=== PATIENT | male | born 1965 | race Hispanic/Latino ===

== ENCOUNTER → 2021-10-24 | Outpatient (CLI) | payer BC ==
[~2021-10-24] MED LIST: ESOM40CA PO; FLUT1DIS4 IH; GADOTERATE MEGLUMINE 10 MMOL/20 ML VIAL IV ONE; INSU100V33 SQ; LOSA50TA64 PO; METF500T PO; PRED50TA2 PO
== END | disposition home or self-care (01) ==
LOC: RAH 09:15
PROVIDERS: ATTEND Internal Medicine Gastroenterology
DX: K76.0 Fatty (change of) liver, not elsewhere classified (principal); R94.5 Abnormal results of liver function studies; R93.2 Abnormal findings on diagnostic imaging of liver and biliary tract
CPT/HCPCS: 74183; A9575

== ENCOUNTER 2022-01-24 08:44 | Day surgery (SDC) | payer BC ==
[2022-01-24] VITALS (8 sets, daily range): BP systolic 121–146; BP diastolic 73–84
[~2022-01-24 08:44] MED LIST changes: -GADOTERATE MEGLUMINE 10 MMOL/20 ML VIAL IV ONE
[2022-01-24 10:05] LABS: INR 1.13 (0.85-1.15); PROTHROMBIN TIME 12.2 SEC (9.6-11.6)
[2022-01-24 10:07] LABS: PARTIAL THROMBOPLASTIN TIME 27.3 SEC (26.3-35.5)
[2022-01-24] MEDS ORDERED: 0.9%NACL 1000ML 1,000 ML IV ONE (11:23)
[2022-01-24] MEDS ORDERED: FENTANYL CITRATE PF 50 MCG/1 ML 2ML VIAL ONE (13:33)
[2022-01-24] MEDS ORDERED: MIDAZOLAM HCL 1 MG/ML 2ML VIAL ONE (13:33)
[2022-01-24] MEDS ORDERED: LIDOCAINE HCL MPF 1% 5ML VIAL ONE (13:34)
[2022-01-24] MEDS ORDERED: TAMS-1 PO (16:10)
[2022-01-24] MEDS ORDERED: EMPA10TA PO (16:10)
[2022-01-24] MEDS ORDERED: AMLO-257 PO (16:10)
[2022-01-24] MEDS ORDERED: OMEP40CA21 PO (16:10)
== END 2022-01-24 17:10 | disposition home or self-care (01) ==
LOC: RAH 08:44 → EDSTATUS 09:00 → RAH 17:10
PROVIDERS: ATTEND Internal Medicine Gastroenterology
DX: R94.5 Abnormal results of liver function studies (principal); K76.0 Fatty (change of) liver, not elsewhere classified; R93.2 Abnormal findings on diagnostic imaging of liver and biliary tract; J45.909 Unspecified asthma, uncomplicated; I10 Essential (primary) hypertension; E11.9 Type 2 diabetes mellitus without complications; K21.00 Gastro-esophageal reflux disease with esophagitis, without bleeding; Z79.899 Other long term (current) drug therapy; Z79.01 Long term (current) use of anticoagulants; Z86.010 Personal history of colon polyps
CPT/HCPCS: 36415; 47000; 76942; 82948 ×2; 85610; 85730; A4215; A4216; A4221; A4222; A4223 ×3; A4606; A4663; C2615; J2250; J3010; J3490; J7030; 99152

== ENCOUNTER → 2022-07-03 | Outpatient (CLI) | payer BC ==
[~2022-07-03] MED LIST changes: +AMLO-257 PO; +EMPA10TA PO; -ESOM40CA PO; -INSU100V33 SQ; +IOHEXOL-350 50ML VIAL IV ONE; -LOSA50TA64 PO; +OMEP40CA21 PO; -PRED50TA2 PO; +TAMS-1 PO
== END | disposition home or self-care (01) ==
LOC: RAH 10:52
PROVIDERS: ATTEND Nurse Practitioner Adult Health
DX: K76.0 Fatty (change of) liver, not elsewhere classified (principal); R59.9 Enlarged lymph nodes, unspecified
CPT/HCPCS: 71260; Q9967

== ENCOUNTER → 2022-07-18 | Outpatient (CLI) | payer BC ==
[~2022-07-18] MED LIST changes: +IOHEXOL 350 MG/ML 100ML INFUS..BTL IV ONE; -IOHEXOL-350 50ML VIAL IV ONE
== END | disposition home or self-care (01) ==
LOC: RAH 08:28
PROVIDERS: ATTEND Nurse Practitioner Adult Health
DX: R59.0 Localized enlarged lymph nodes (principal)
CPT/HCPCS: 70491; Q9967